=== PATIENT | male | born 1965 | race Caucasian/White ===

== ENCOUNTER 2018-04-14 15:55 | Inpatient (IN) | payer SELFPAY ==
--- NOTE | 2018-04-14 17:38 | ULT ---
LEFT LOWER EXTREMITY VENOUS DUPLEX EXAM: 04/14/18 Deep veins of the left lower extremity evaluated with color doppler, spectral analysis and compressio n. HISTORY: Left lower extremity pain with redness. Deep veins of the left lower extremity show normal blood flow and compression. No evidence of DVT. Th ere is evidence of subcutaneous edema. IMPRESSION: No evidence of left lower extremity DVT. POS: SARAH
[2018-04-14] MEDS ORDERED: Sodium Chloride 0.9% 100 ML ONE (18:26)
[2018-04-14] MEDS ORDERED: cefTRIAXone\\ROCEPHIN 2 GM VIAL ONE (18:26)
[2018-04-14] MEDS ORDERED: Acetaminophen 500 MG TAB ONE (18:37)
[2018-04-14 19:16] VITALS: BMI 26.3
[2018-04-14] MEDS ORDERED: Acetaminophen 325 MG TAB PO PRN (19:28)
[2018-04-14] MEDS ORDERED: Ondansetron ODT 4 MG TAB PO PRN (19:28)
[2018-04-14] MEDS ORDERED: HYDROcodone/Acetaminophen 5/325 mg Tablet PO PRN (19:28)
--- NOTE | 2018-04-14 19:30 | HP ---
DATE OF ADMISSION: 04/14/2018 CHIEF COMPLAINT: Left leg pain. HISTORY OF PRESENT ILLNESS: This is a 53-year-old white male with resident of [place]. He was in his usual state of health, working as a automotive welder. Four days ago, he started noticing chills and fevers an d was taking Tylenol at home, but today morning, he noticed his redness of his left lower extremity w ith severe pain and redness creeping down to his groin. He went to [place] [facility] and he was given one do se of antibiotics, which was Rocephin and then he had an ultrasound of the leg, which was negative. The patient was transferred to [facility] for further management. As the patient was looking sick er with elevated white count. Patient came to the ER, he was alert and oriented. He was in severe d istress with the pain. He was started on vancomycin in the ER. The patient denied having any other medical issues. Denies having any chest pain, no nausea, no vomiting, no diarrhea. He denies having any sick contacts. Denies having any injuries to the foot. He wears long boots with ankle height s ocks and most of the skin is exposed to the leather of his boot. Most likely could have got an infec tion from the abrasions from the boot skin. PAST MEDICAL HISTORY: None. PAST SURGICAL HISTORY: The patient had a gallbladder removed. SOCIAL HISTORY: The patient is not a nonsmoker. No history of alcohol, no history of illicit drug u se. FAMILY HISTORY: No significant family history of coronary artery disease. Family history has been r eviewed. ALLERGIES: No known drug allergies. HOME MEDICATIONS: None. REVIEW OF SYSTEMS: All 12 systems are reviewed with the patient thoroughly and found to be negative at this time. The following complete review of systems was negative, unless otherwise mentioned in t he HPI or below: Constitutional: Weight loss or gain, sense of well-being, ability to conduct usual activities, exerc ise tolerance. Skin/Breast: Rash, itching, changes in hair growth or loss, nail changes, breast lumps, tenderness, swelling, nipple discharge. Eyes: Vision, double vision, tearing, blind spots, pain. ENT/Mouth: Headaches (location, time of onset, duration, precipitating factors), vertigo, lightheade dness, injury. Vision, double vision, tearing, blind spots, pain, nose bleeding, colds, obstruction, discharge, dental difficulties, gingival bleeding, dentures, neck stiffness, pain, tenderness, masses in thyroid or other areas. Cardiovascular: Precordial pain, substernal distress, palpitations, syncope, dyspnea on exertion, or thopnea, nocturnal paroxysmal dyspnea, edema, cyanosis, hypertension, heart murmurs, varicosities, ph lebitis, claudication. Respiratory: Pain, shortness of breath, wheezing, stridor, cough, hemoptysis, fever or night sweats. Gastrointestinal: Poor appetite, dysphagia, indigestion, abdominal pain, heartburn, eructation, naus ea, vomiting, hematemesis, jaundice, constipation, or diarrhea, abnormal stools (bryce-colored, tarry, bloody, greasy, foul smelling), flatulence, hemorrhoids, recent changes in bowel habits. Genitourinary: Urgency, frequency, dysuria, nocturia, hematuria, polyuria, oliguria, unusual (or zan nge in) color of urine, stones, hesitancy, change in size of stream, dribbling, acute retention or in continence, libido, potency. Musculoskeletal: Pain, swelling, redness or heat of muscles or joints, limitation, of motion, muscul ar weakness, atrophy, cramps. Neurologic/Psychiatric: Convulsions, paralyses, tremor, incoordination, parasthesias, difficulties w ith memory of speech, sensory or motor disturbances, or muscular coordination (ataxia, tremor), emoti onal problems, anxiety, depression, previous psychiatric care, unusual perceptions, hallucinations. Allergy/Immunologic: Skin rash, anemia, bleeding tendency, polydipsia, polyuria, intolerance to heat or cold. PHYSICAL EXAMINATION: VITAL SIGNS: Blood pressures are 150/80, heart rate is 88, respiration is 18, saturation 98%. GENERAL: The patient is moderately built and moderately nourished. He does not appear in acute dist ress at this time. He is an alert, oriented x3. HEENT: Atraumatic, normocephalic, PERRLA, extraocular muscles intact. Oral mucosa pink and moist. CARDIOVASCULAR: S1 and S2 normal. No murmurs, rubs, or gallops. LUNGS: Bilateral air entry was equal. No wheezing, no crackles. ABDOMEN: Soft, nontender, no guarding, no rebound tenderness. Bowel sounds normal. MUSCULOSKELETAL: No calf tenderness. No pedal edema. EXTREMITIES: No joint tenderness, no joint swelling. SKIN: No skin erythema was noted in the left lower extremity from the ankle up to the knee and the r edness was also noted in the medial side of the left thigh. No cyanosis was noted. MUSCULOSKELETAL: No calf tenderness was noted. No joint tenderness, no joint swelling. NEUROLOGIC: Cranial nerve examination II through XII intact. No focal deficits were noted. PSYCHIATRIC: No signs of suicidal ideation and no signs of aniket was noted. LYMPHATICS: Mild external inguinal lymph nodes were noted and was tender. LABORATORY DATA: WBC 13.6, hemoglobin is 16.7, hematocrit is 51.7, band neutrophils were 8%. Sodium 130, potassium 3.5, chloride is 103, bicarbonate is 23, BUN is 13, creatinine 0.78, lactic aci d 1.2. UA showed elevated proteins and ketones more than 80 was noted. ASSESSMENT: 1. Sepsis from left lower extremity cellulitis. 2. Severe dehydration. PLAN: 1. Plan is to start the patient on IV antibiotics with vancomycin 1 gram IV b.i.d. and Rocephin 1 gr am IV daily. The patient has evidence of sepsis with elevated white count and severe dehydration. Twila ruth already received 1 liter of fluid bolus in the ER and his lactic acid has been stable at 1.2 as he also received fluids in the [place] ER. 2. We will continue with the fluid management at this time. 3. The patient will have PT and OT evaluation as the patient complains of severe pain in the left le g and ultrasound of the calf was negative at this time. 4. Deep venous thrombosis prophylaxis is Lovenox. DICTATING PHYSICIAN: Mauricio Castillo M.D. I spent 75 minutes with this patient.
[2018-04-14] MEDS: Docusate 100 MG CAP PO SCH (19:53)
[2018-04-14] MEDS: Famotidine 20 MG TAB PO SCH (19:53)
[2018-04-14] MEDS: Sodium Chloride 0.9% 1,000 ML IV SCH (19:53)
[2018-04-14] MEDS ORDERED: cefTRIAXone\\ROCEPHIN 1 GM in Sodium Chloride 0.9% 100 ML IVPB SCH (20:00)
[2018-04-14 20:18] LABS: Anion Gap 15 mmol/L (10-20); BUN (Urea Nitrogen) 11 mg/dL (8.4-25.7); Calc. Creatinine Clearance 146 mL/min (70-130); Calcium 8.5 mg/dL (7.8-10.44); Carbon Dioxide 20 mmol/L (22-29); Chloride 104 mmol/L (98-107); Estimated GFR-MDRD Greater than 90; Glucose 89 mg/dL (70-105); Potassium 3.6 mmol/L (3.5-5.1); Sodium 135 mmol/L (136-145)
[2018-04-14] MEDS ORDERED: Vancomycin HCl 1 GM in Sodium Chloride 0.9% 250 ML 250 ML IVPB SCH (21:00)
[2018-04-14] MEDS ORDERED: Vancomycin HCl 1 GM in Premix Bag 1 BAG IVPB SCH (21:00)
[2018-04-14] MEDS: Vancomycin HCl 1.25 GM in Sodium Chloride 0.9% 250 ML 250 ML IVPB SCH (21:21)
[2018-04-15] MEDS: Vancomycin HCl 1.25 GM in Sodium Chloride 0.9% 250 ML 250 ML IVPB SCH ×3 (05:13→22:11)
[2018-04-15] MEDS: Sodium Chloride 0.9% 1,000 ML IV SCH ×2 (05:16→14:36)
[2018-04-15 05:38] LABS: #Eosinphils 0.2 thou/uL (0.0-0.7); #Lymphocytes 2.1 thou/uL (1.20-3.40); #Monocytes 1.7 thou/uL (0.11-0.59); #Neutrophils 7.2 thou/uL (1.40-6.50); %Basophils 0.4 % (0.0-1.0); %Eosinophils 1.9 % (0.0-10.0); %Lymphocytes 18.8 % (21.0-51.0); %Monocytes 14.9 % (0.0-10.0); Hemoglobin 13.8 g/dL (14.0-18.0); Mean Corpuscular HGB CONC 32.4 g/dL (32.0-36.0); Mean Corpuscular Hemoglobin 30.8 pg (27.0-31.0); Mean Platelet Volume 7.9 fL (7.4-10.4); Platelet Count 182 thou/uL (130-400); RBC Distribution Width 13.1 % (11.5-14.5); White Blood Cell (WBC) Count 11.2 thou/uL (4.8-10.8)
[2018-04-15 05:39] LABS: Anion Gap 10 mmol/L (10-20); BUN (Urea Nitrogen) 9 mg/dL (8.4-25.7); Calc. Creatinine Clearance 128 mL/min (70-130); Calcium 8.1 mg/dL (7.8-10.44); Carbon Dioxide 26 mmol/L (22-29); Chloride 105 mmol/L (98-107); Estimated GFR-MDRD Greater than 90; Glucose 112 mg/dL (70-105); Potassium 3.6 mmol/L (3.5-5.1); Sodium 137 mmol/L (136-145)
[2018-04-15] MEDS: Enoxaparin Sodium 40 MG/0.4 ML SYRINGE SC SCH (07:58)
[2018-04-15] MEDS: Docusate 100 MG CAP PO SCH ×2 (07:59→19:56)
[2018-04-15] MEDS: Famotidine 20 MG TAB PO SCH (07:59)
[2018-04-15] MEDS ORDERED: Famotidine 20 MG TAB PO SCH (10:45)
[2018-04-15] MEDS: Ibuprofen 200 MG TAB PO PRN (12:51)
--- NOTE | 2018-04-15 15:40 | PDOC.PN ---
- Subjective Encounter Start Date: 04/15/18 Encounter Start Time: 15:41 Seen and examined following admission for cellulitis of L leg leading to sepsis. Feeling much better. Erythema resolving. No acute overnight and no complaints today. - Objective Resuscitation Status: Resuscitation Status FULL:Full Resuscitation Vital Signs & Weight: Vital Signs (12 hours) Temp Pulse Resp BP Pulse Ox 04/15/18 07:56 98.8 F 69 16 98 04/15/18 07:13 98.8 F 69 16 128/86 98 I&O: 04/14/18 04/15/18 04/16/18 06:59 06:59 06:59 Intake Total 1250 Balance 1250 Result Diagrams: 04/15/18 05:05 04/15/18 05:05 Phys Exam - Physical Examination Constitutional: NAD HEENT: PERRLA, moist MMs, sclera anicteric, oral pharynx no lesions Neck: supple, full ROM Respiratory: no wheezing, no rales, no rhonchi, clear to auscultation bilateral Cardiovascular: RRR, no significant murmur, no rub Gastrointestinal: soft, non-tender, no distention, positive bowel sounds Musculoskeletal: no edema, pulses present Neurological: non-focal, moves all 4 limbs Psychiatric: normal affect, A&O x 3 Skin: normal turgor Deviation from normal: Erythema + mild edema around Led (improving) Dx/Plan (1) Sepsis Code(s): A41.9 - SEPSIS, UNSPECIFIED ORGANISM Status: Acute Qualifiers: Sepsis type: sepsis due to unspecified organism Qualified Code(s): A41.9 - Sepsis, unspecified organism Plan: As above. Comment: 2/2 cellulitis. Responding to treatment (2) Left leg cellulitis Code(s): L03.116 - CELLULITIS OF LEFT LOWER LIMB Status: Acute (3) Dehydration Code(s): E86.0 - DEHYDRATION Status: Resolved - Plan cont current plan of care, plan discussed w/ family, continue antibiotics, DVT proph w/lovenox * . Review of Systems - Medications/Allergies Allergies/Adverse Reactions: Allergies Allergy/AdvReac Type Severity Reaction Status Date / Time No Known Allergies Allergy Verified 04/14/18 19:27 Medications: Current Medications Acetaminophen (Tylenol) 650 mg PO Q4H PRN PRN Reason: Headache/Fever or Pain Last Admin: 04/15/18 05:11 Dose: 650 mg Hydrocodone Bitart/Acetaminophen ([place] 5/325) 1 tab PO Q4H PRN PRN Reason: Moderate Pain (4-6) Docusate Sodium (Colace) 100 mg PO BID [facility] Last Admin: 04/15/18 07:59 Dose: Not Given Enoxaparin Sodium (Lovenox) 40 mg SC 0900 [facility] Last Admin: 04/15/18 07:58 Dose: 40 mg Ceftriaxone Sodium 1 gm/ (Sodium Chloride) 100 mls @ 200 mls/hr IVPB 2000 [facility] Last Admin: 04/14/18 19:54 Dose: Not Given Sodium Chloride (Normal Saline 0.9%) 1,000 mls @ 100 mls/hr IV .Q10H [facility] Last Admin: 04/15/18 14:36 Dose: 1,000 mls Vancomycin HCl 1.25 gm/ Sodium (Chloride) 250 mls @ 166.667 mls/hr IVPB Q8HR [facility] Last Admin: 04/15/18 14:37 Dose: 250 mls Ibuprofen (Motrin) 400 mg PO Q8H PRN PRN Reason: Pain Last Admin: 04/15/18 12:51 Dose: 400 mg Miscellaneous Medication (Pharmacy To Dose) 1 each IVPB ONE [facility] Stop: 04/15/18 21:01 Ondansetron HCl (Zofran Odt) 4 mg PO Q6H PRN PRN Reason: Nausea/Vomiting
[2018-04-15] MEDS: cefTRIAXone\\ROCEPHIN 1 GM in Sodium Chloride 0.9% 100 ML IVPB SCH (19:53)
[2018-04-15 21:11] LABS: Vancomycin, Trough 15.9 ug/mL
[2018-04-16] MEDS: Sodium Chloride 0.9% 1,000 ML IV SCH (03:28)
[2018-04-16 04:37] LABS: #Basophils 0.1 thou/uL (0.0-0.2); #Eosinphils 0.4 thou/uL (0.0-0.7); #Lymphocytes 2.2 thou/uL (1.20-3.40); #Monocytes 1.2 thou/uL (0.11-0.59); #Neutrophils 4.8 thou/uL (1.40-6.50); %Basophils 0.9 % (0.0-1.0); %Eosinophils 4.6 % (0.0-10.0); %Lymphocytes 25.3 % (21.0-51.0); %Monocytes 13.3 % (0.0-10.0); Hemoglobin 12.9 g/dL (14.0-18.0); Mean Corpuscular HGB CONC 33.3 g/dL (32.0-36.0); Mean Corpuscular Volume 96.1 fl (80.0-94.0); Mean Platelet Volume 7.8 fL (7.4-10.4); Platelet Count 175 thou/uL (130-400); RBC Distribution Width 13.2 % (11.5-14.5); Red Blood Cell (RBC) Count 4.03 mill/uL (4.70-6.10); White Blood Cell (WBC) Count 8.6 thou/uL (4.8-10.8)
[2018-04-16 04:45] LABS: Anion Gap 10 mmol/L (10-20); BUN (Urea Nitrogen) 6 mg/dL (8.4-25.7); Calc. Creatinine Clearance 135 mL/min (70-130); Calcium 8.5 mg/dL (7.8-10.44); Carbon Dioxide 27 mmol/L (22-29); Chloride 109 mmol/L (98-107); Estimated GFR-MDRD Greater than 90; Glucose 130 mg/dL (70-105); Potassium 4.1 mmol/L (3.5-5.1); Sodium 142 mmol/L (136-145)
[2018-04-16] MEDS: Vancomycin HCl 1.25 GM in Sodium Chloride 0.9% 250 ML 250 ML IVPB SCH (05:34)
[2018-04-16] MEDS: Ibuprofen 200 MG TAB PO PRN (06:34)
[2018-04-16] MEDS: Enoxaparin Sodium 40 MG/0.4 ML SYRINGE SC SCH (07:55)
[2018-04-16] MEDS: Docusate 100 MG CAP PO SCH (07:55)
[2018-04-16] MEDS ORDERED: Famotidine 20 MG TAB PO SCH (09:00)
[2018-04-16 11:27] VITALS: BP 128/77; TEMP 98.4
[2018-04-16] MEDS: cefTRIAXone\\ROCEPHIN 1 GM in Sodium Chloride 0.9% 100 ML IVPB SCH (11:52)
--- NOTE | 2018-04-16 15:24 | DIS ---
DATE OF ADMISSION: 04/14/2018 DATE OF DISCHARGE: 04/16/2018 DISCHARGE DIAGNOSIS: Left lower leg cellulitis. HISTORY OF PRESENT ILLNESS/HOSPITAL COURSE: Mr. Tim Mead is a 53-year-old male, who pr esents to the emergency room with a 4-day history of fever and chills. He was taking Tylenol while a t home, but it did not improve, and on the day of admission, he noticed some redness in his left lowe r extremity with severe pain, creeping down up to his groin. He went to the [place] ER where he was g iven one dose of antibiotics. He also had an ultrasound of the leg, which was negative for DVTs and was then transferred to [facility] for further management. Due to his elevated white blood count and a rapid onset, as well as in severe distress, a decision was made to admit him to the hospital fo r further care. He was started on IV vancomycin and ceftriaxone. The area was marked on the monitor . With IV antibiotics, patient's cellulitis improved dramatically. Pain improved and he was almost not in any pain on the day of discharge. He was discharged without incident and told to be compliant with the Keflex ordered. DISCHARGE MEDICATIONS: Keflex 500 mg twice a day, Zantac 150 mg daily as needed. PHYSICAL EXAMINATION: He was examined on the day of discharge. GENERAL: Not in acute distress. HEENT: PERRLA, EOMI. Moist mucous membranes. No icterus. NECK: Supple. RESPIRATORY: No wheezes, rales, or rhonchi. Vesicular breath sounds. CARDIOVASCULAR: Regular rate and rhythm. S1 and S2 with no murmurs, rubs, or gallops. GASTROINTESTINAL: Soft, nontender, nondistended. Bowel sounds normoactive. MUSCULOSKELETAL: No edema. NEUROLOGIC: Alert and well oriented to time, place, and person. No focal deficits. PSYCHIATRIC: Normal mood and affect. SKIN: There is erythema in the left lower extremity, markedly improved from admission, nontender wit h minimal edema. DISCHARGE DIAGNOSES: Sepsis, left leg cellulitis, dehydration. LABORATORY DATA: WBC 8.6, hemoglobin 12.9, platelet count 175. Sodium 142, potassium 4.1, chloride 109, carbon dioxide 27, anion gap 10, BUN 13, creatinine 0.76, glucose 130, calcium 8.5. IMAGING: Ultrasound of left lower extremity as stated in HPI. CONSULTATIONS: None. CONDITION AT DISCHARGE: Stable and improved. PROCEDURES: None. DIET: Regular. CARE GOALS: To follow up with his primary care physician within 1 week of discharge. ACTIVITY: To resume as tolerated. DISCHARGE TIME: 65 minutes including chart review and documentation.
--- NOTE | 2018-04-17 19:29 | PDOC.EVN ---
Event Note - Event Note Event Note: Attempted to call Mr Tim Mead to inform him of blood culture results but kept going to voicemail. Sensitivities pending and patient had responded to current antimicrobial therapy. Will reattempt.
== END 2018-04-16 13:32 | disposition home or self-care (01) | DRG 872 ==
LOC: ERS 15:55 → OBSVTOIN 19:08 → 2SW 19:08 → T4-B 20:33
PROVIDERS: ADMIT Family Medicine; ATTEND Family Medicine
DX: A41.9 Sepsis, unspecified organism (principal); L03.116 Cellulitis of left lower limb; E86.0 Dehydration; Z79.899 Other long term (current) drug therapy
CPT/HCPCS: 36415; 80048; 80202; 83605; 85025; 96365; 99406; A4216; J0696; J1650; J3370; J7050